=== PATIENT | female | born 1960 | race Caucasian/White ===

== ENCOUNTER 2023-08-04 07:10 | Day surgery (SDC) | payer OTHER ==
[~2023-08-04] VITALS: Ht 162.6 cm; Wt 105.5 kg
[2023-08-04] MEDS ORDERED: MULT-1085 PO (07:27)
[2023-08-04] MEDS ORDERED: METO50TA16 PO (07:27)
[2023-08-04] MEDS ORDERED: BIOT10TA PO (07:28)
[2023-08-04 07:29] VITALS: BP 151/60; PULSE 61; RESP 18
[2023-08-04] MEDS ORDERED: CALC-446 PO (07:29)
[2023-08-04] MEDS ORDERED: fentaNYL/PF 50MCG/1 ML 2ML syringe ONE (08:17)
[2023-08-04] MEDS ORDERED: MIDAZolam 1 MG/ML 5ML VIAL ONE (08:17)
[2023-08-04] MEDS ORDERED: diphenhydrAMINE 50 mg/ml inj ONE (08:17)
[2023-08-04 08:48] VITALS: BP 110/51; PULSE 68; RESP 15; O2SAT 100
[2023-08-04 08:58] VITALS: BP 112/53; PULSE 66; RESP 14; O2SAT 98
[2023-08-04 09:08] VITALS: BP 115/51; PULSE 67; RESP 13; O2SAT 98
[2023-08-04 09:18] VITALS: BP 113/53; PULSE 64; RESP 20; O2SAT 95
== END 2023-08-04 09:20 | disposition home or self-care (01) ==
LOC: GI LAB 07:10
PROVIDERS: ATTEND Internal Medicine Gastroenterology
DX: Z12.11 Encounter for screening for malignant neoplasm of colon (principal); D12.2 Benign neoplasm of ascending colon; K57.30 Diverticulosis of large intestine without perforation or abscess without bleeding; I10 Essential (primary) hypertension; G47.30 Sleep apnea, unspecified; Z88.0 Allergy status to penicillin; Z88.2 Allergy status to sulfonamides; Z88.8 Allergy status to other drugs, medicaments and biological substances; Z98.84 Bariatric surgery status; Z79.899 Other long term (current) drug therapy
CPT/HCPCS: 45385; 99152; 99153; C1889; J1200; J2250; J3010; J7030; Z7512; A4620